=== PATIENT | female | born 1990 | race Hispanic/Latino ===

== ENCOUNTER 2018-08-09 11:17 | Inpatient (IN) | payer MEDICAID | END 2018-08-10 18:00 | disposition home or self-care (01) | LOC: LDH 11:17 → WSH 20:40 | PROC: 10E0XZZ Delivery of Products of Conception, External Approach (ICD-10-PCS; principal; ~2018-08-09) | DX: O16.4 Unspecified maternal hypertension, complicating childbirth (principal); Z37.0 Single live birth; Z3A.49 Greater than 42 weeks gestation of pregnancy ==

== ENCOUNTER 2018-08-18 03:51 | Emergency (ER) | payer MEDICAID ==
[~2018-08-18 03:51] MED LIST: PREN1COM14 PO
[2018-08-18] MEDS ORDERED: LIDOCAINE HCL 2% VISCOUS 15 ML UDCUP ONE (04:40)
[2018-08-18] MEDS ORDERED: MAG HYDROX/AL HYDROX/SIMETH ES 30 ML SUSP UDCUP ONE (04:40)
[2018-08-18] MEDS ORDERED: FAMOTIDINE 20MG TAB 20 MG TAB ONE (04:41)
[2018-08-18] MEDS ORDERED: PANTOPRAZOLE SODIUM 40 MG TABLET.DR PO ONE (04:41)
== END 2018-08-18 05:00 | disposition home or self-care (01) ==
LOC: EDH 03:51
DX: O90.89 Other complications of the puerperium, not elsewhere classified (principal); R10.13 Epigastric pain